=== PATIENT | female | born 2000 | race Caucasian/White ===

== ENCOUNTER 2019-02-14 11:26 | Emergency (ER) | payer BC ==
--- NOTE | 2019-02-14 12:22 | EDM.PDOC ---
ED HPI GENERAL MEDICAL PROBLEM - General Chief Complaint: Bite:Animal, Insect Stated Complaint: TICK IN EAR Time Seen by Provider: 02/14/19 12:11 Source of Information: Reports: Patient, Family History Limitations: Reports: No Limitations - History of Present Illness INITIAL COMMENTS - FREE TEXT/NARRATIVE: 19 yo female presents with concern that a tick has embedded in her right ear. she was sitting at the breakfast table this AM and her mom noticed a black dot in the superior external ear. THey attempted removal at home without success. generally healthy - Related Data Allergies Allergy/AdvReac Type Severity Reaction Status Date / Time No Known Allergies Allergy Verified 02/14/19 12:09 Social & Family History - Tobacco Use Smoking Status *Q: Never Smoker - Caffeine Use Caffeine Use: Reports: Coffee - Recreational Drug Use Recreational Drug Use: No ED ROS GENERAL - Review of Systems Review Of Systems: See Below Constitutional: Denies: Fever, Chills Respiratory: Denies: Shortness of Breath, Wheezing Cardiovascular: Denies: Chest Pain ED EXAM, ANIMAL BITE - Physical Exam Exam: See Below Exam Limited By: No Limitations General Appearance: Alert, WD/WN, No Apparent Distress Ears: Other (black 1mm foreign matter in right ear) Skin Exam: Normal Color, Warm/Dry Course - Vital Signs Last Recorded V/S: Last Vital Signs Temp 36.8 C 02/14/19 12:12 Pulse 74 02/14/19 12:12 Resp 16 02/14/19 12:12 BP 138/86 02/14/19 12:12 Pulse Ox 99 02/14/19 12:12 - Re-Assessments/Exams Free Text/Narrative Re-Assessment/Exam: 02/14/19 14:34 area cleansed with alcohol. foreign body removed with splinter forceps. inspected under magnification and I believe it is a black head Departure - Departure Time of Disposition: 12:21 Disposition: Home, Self-Care 01 Condition: Good Clinical Impression: Black head - Discharge Information *PRESCRIPTION DRUG MONITORING PROGRAM REVIEWED*: Not Applicable *COPY OF PRESCRIPTION DRUG MONITORING REPORT IN PATIENT SMITH: Not Applicable Instructions: Acne, [id number] Referrals: PCP,None [Primary Care Provider] - Forms: ED Department Discharge Additional Instructions: wash with warm soapy water
== END 2019-02-14 12:32 | disposition home or self-care (01) ==
LOC: JP.ED 11:26
DX: T16.1XXA Foreign body in right ear, initial encounter (principal); X58.XXXA Exposure to other specified factors, initial encounter
CPT/HCPCS: 69200; 99282